=== PATIENT | male | born 1990 | race Two or more races ===

== ENCOUNTER 2019-05-17 22:30 | Emergency (ER) | payer OTHER ==
[~2019-05-17] VITALS: Ht 170.2 cm; Wt 81.6 kg
[2019-05-17 22:25] VITALS: BP 122/66
--- NOTE | 2019-05-17 22:25 | NUR ---
ED Nurse Note: Patient brought into ED by RA Miner from the [facility] accompanied by GUERDA c/o medical clearance, states that he has shortness of breathe, at time of arrival patient is tachycardic in the 140s, patient is alert and oriented x4, presents with dry grass on the patients shirt. is not complaining of any pain at this time. patient placed on a art objects supervisor, will continue to monitor
--- NOTE | 2019-05-17 22:30 | NUR ---
ED Nurse Note: Patient sittingin bed comfortably, no distress noted. o2 sat at 100%.
--- NOTE | 2019-05-17 22:37 | Emergency Room Report ---
History of Present Illness General Chief Complaint: Medical Clearance Source: Patient Present Illness HPI This is a 29-year-old male with no past medical history. He is brought in by police and EMS for chief complaint of shortness of breath. He was being arrested. He was running away from please officer. He was arrested and placed in the please call. There he developed shortness of breath. Said he could not breathe. He said his hands felt numb. So now along with call. He felt better now. Denies any fever chills but no history of asthma. No nausea no vomiting. Does have a slight cough now. Denies any other complaint. Allergies: Coded Allergies: No Known Allergies (Unverified , 05/17/19) Patient History Past Medical History: see triage record, old chart reviewed Past Surgical History: none Pertinent Family History: none Social History: Reports: drug use - marijuana; Denies: smoking Immunizations: other Reviewed Nursing Documentation: PMH: Agreed; PSxH: Agreed Nursing Documentation-PMH Past Medical History: No Stated History Review of Systems Eye: Denies: eye pain, blurred vision ENT: Denies: ear pain, nose congestion, throat swelling Respiratory: Reports: cough, shortness of breath Cardiovascular: Denies: chest pain, palpitations Gastrointestinal: Denies: abdominal pain, diarrhea, nausea, vomiting Musculoskeletal: Denies: back pain, joint pain Skin: Denies: rash Neurological: Denies: headache, numbness Endocrine: Denies: increased thirst, increased urine Hematologic/Lymphatic: Denies: easy bruising All Other Systems: negative except mentioned in HPI Physical Exam Vital Signs Date Time Temp Pulse Resp B/P (MAP) Pulse Ox O2 Delivery O2 Flow Rate FiO2 05/17/19 22:19 98.2 140 18 122/66 (84) 100 Room Air Vitals with tachycardia Sp02 EP Interpretation: reviewed, normal General Appearance: well appearing, no apparent distress, alert Head: normocephalic, atraumatic Eyes: bilateral eye PERRL, bilateral eye EOMI ENT: hearing grossly normal, normal pharynx Neck: full range of motion, supple, no meningismus Respiratory: chest non-tender, lungs clear, normal breath sounds Cardiovascular #1: regular rate, rhythm, no murmur, tachycardia - Heart rate 110 Gastrointestinal: normal bowel sounds, non tender, no mass, no organomegaly, no bruit, non-distended Musculoskeletal: back normal, gait/station normal, normal range of motion Psychiatric: mood/affect normal Medical Decision Making Diagnostic Impression: Primary Impression: Dyspnea Qualified Codes: R06.02 - Shortness of breath Additional Impression: Examination, medicolegal reason ER Course Patient presents with shortness of breath. Probably secondary to running and possibly drug abuse. Heart rate down to the 110 with resting. Lungs are clear. I see no wheezing. He felt better now. His numbness hands resolved after handcuffs were loosened. He is medically clear for discharge please officer. Last Vital Signs Date Time Temp Pulse Resp B/P (MAP) Pulse Ox O2 Delivery O2 Flow Rate FiO2 05/17/19 22:25 140 18 Room Air 05/17/19 22:25 98.2 122/66 100 Status: improved Disposition: D/C TO LAW ENFORCEMENT IN [facility] Condition: Stable Additional Instructions: Follow-up with your doctor in 7 days as needed. Return if symptoms worsen. Brandin Martin MD May 17, 2019 22:37
[2019-05-17 22:41] VITALS: BP 125/70
--- NOTE | 2019-05-17 22:41 | NUR ---
ER DISCHARGE NOTE: Patient is cleared to be discharged per ERMD, pt is aox4, on room air, with stable vital signs. pt was given dc instructions, pt was able to verbalize understanding, pt id band site removed without complications. pt is able to ambulate with steady gait. pt took all belongings. Patient was given OK to book
== END 2019-05-17 23:10 ==
LOC: EDBD 22:30 → EMR 22:30
DX: R06.02 Shortness of breath (principal); R05 Cough
CPT/HCPCS: 99282